=== PATIENT | female | born 2000 | race African-American/Black ===

== ENCOUNTER 2021-10-15 19:23 | Emergency (ER) | payer SELFPAY ==
[2021-10-15] MEDS ORDERED: Bupivacaine PF 0.5% 30 ML VIAL ONE (20:52)
[2021-10-15] MEDS ORDERED: Bacitracin 1 PK ONE (21:04)
== END 2021-10-15 21:25 | disposition home or self-care (01) ==
LOC: CSHERS 19:23
DX: S61.214A Laceration without foreign body of right ring finger without damage to nail, initial encounter (principal); J45.909 Unspecified asthma, uncomplicated; W26.8XXA Contact with other sharp object(s), not elsewhere classified, initial encounter
CPT/HCPCS: 12001; S0020